=== PATIENT | female | born 2000 | race Caucasian/White ===

== ENCOUNTER → 2020-10-21 | Outpatient (CLI) | payer OTHER ==
--- NOTE | 2020-10-21 12:02 | DEXAMM ---
INDICATION: PRIMARY OVARIAN FAILURE. COMPARISON: None. TECHNIQUE: Bone density was measured using dual-energy x-ray absorptionmetry (DEXA). FINDINGS: AP SPINE L1-L4 BMD 0.902 g/cm2 Young Adult T-Score -2.4 Age Matched Z-Score -2.4. LT FEMUR, TOTAL BMD 0.873 g/cm2 Young Adult T-Score -1.1 Age Matched Z-Score -1.1. LT NECK BMD 0.880 g/cm2 Young Adult T-Score -1.1 Age Matched Z-Score -1.2. RT FEMUR, TOTAL BMD 0.847 g/cm2 Young Adult T-Score -1.3 Age Matched Z-Score -1.3. RT NECK BMD 0.891 g/cm2 Young Adult T-Score -1.1 Age Matched Z-Score -1.2. IMPRESSION: There is low bone density of the spine. There is low bone density of the left hip. There is low bone density of the right hip. FOLLOW-UP: Recommendation for the next bone density exam: 2 years. <Electronically signed by Edy Santiago > 10/21/20 [id number]
== END ==
LOC: M WHC 10:13
DX: E28.39 Other primary ovarian failure (principal); Z13.820 Encounter for screening for osteoporosis; M85.88 Other specified disorders of bone density and structure, other site; M85.851 Other specified disorders of bone density and structure, right thigh; M85.852 Other specified disorders of bone density and structure, left thigh